=== PATIENT | female | born 1965 | race Caucasian/White ===

== ENCOUNTER 2017-06-16 15:14 | Emergency (ER) | payer OTHER ==
[2017-06-16 15:15] VITALS: O2SAT 97
[2017-06-16 15:48] VITALS: BP 118/81; PULSE 94; RESP 16; TEMP 97.4
[2017-06-16] MEDS ORDERED: ASPIRIN 325 MG TAB PO SCH (16:15)
[2017-06-16 16:18] LABS: BASOPHILS % (AUTO) 1 % (0-3); EOSINOPHILS % (AUTO) 2 % (0-9); HEMATOCRIT 44 % (35-47); MEAN CORPUSCULAR HGB CONC 33.8 gm/dl (32.0-36.0); MEAN CORPUSCULAR VOLUME 89 fL (81-99); MONOCYTES % (AUTO) 10.6 % (0-12); NEUTROPHILS % (AUTO) 61.9 % (37-80)
[2017-06-16 16:27] LABS: POTASSIUM 3.9 mMol/L (3.5-5.1)
[2017-06-16] MEDS ORDERED: ASPIRIN 325 MG TAB ONE (16:36)
== END 2017-06-16 16:41 | disposition home or self-care (01) ==
LOC: ED 15:14
DX: M79.89 Other specified soft tissue disorders (principal); R25.2 Cramp and spasm
CPT/HCPCS: 36415; 80048; 83735; 85025; 99282

== ENCOUNTER 2017-09-02 09:47 | Emergency (ER) | payer OTHER ==
[2017-09-02 09:58] VITALS: BP 123/82; PULSE 93; RESP 18; TEMP 96.9; O2SAT 98
[2017-09-02 10:34] LABS: BASOPHILS % (AUTO) 1 % (0-3); EOSINOPHILS % (AUTO) 1 % (0-9); HEMATOCRIT 43 % (35-47); MEAN CORPUSCULAR HGB CONC 34.9 gm/dl (32.0-36.0); MEAN CORPUSCULAR VOLUME 87 fL (81-99); MONOCYTES % (AUTO) 7.8 % (0-12); NEUTROPHILS % (AUTO) 73.5 % (37-80)
[2017-09-02 11:01] LABS: ALBUMIN 4.2 gm/dl (3.4-5.0); ALT 20 IU/L (14-63); GLOM FILT RATE 80 mL/min (>60); POTASSIUM 4.4 mMol/L (3.5-5.1); SODIUM 138 mMol/L (136-145); THYROID STIMULATING HORMONE 0.913 uIU/ml (0.358-3.740)
[2017-09-02 12:03] LABS: AMPHETAMINES NEGATIVE (NEGATIVE); METHADONE NEGATIVE (NEGATIVE); OPIATES(OP13) NEGATIVE (NEGATIVE); OXYCODONE(OXY) NEGATIVE (NEGATIVE); PROPOXYPHENE(PPX) NEGATIVE (NEGATIVE); TRICYCLIC ANTIDEPRESSANTS NEGATIVE (NEGATIVE)
[2017-09-02 12:47] LABS: APPEARANCE,URINE Clear; BILIRUBIN,URINE NEGATIVE (NEGATIVE); COLOR,URINE Yellow; GLUCOSE, URINE (UA) NEGATIVE (NEGATIVE); KETONES,URINE NEGATIVE (NEGATIVE); LEUKOCYTE ESTERASE ,URINE NEGATIVE (NEGATIVE); NITRATE,URINE NEGATIVE (NEGATIVE); OCCULT BLOOD,URINE 1+ (NEG-TRACE); UROBILINOGEN,URINE 0.2 (0.2-1.0 EU)
[2017-09-02 13:03] LABS: RBC,URINE NEG (0-3AV/HPF); WBC,URINE 0-1 (0-5AV/HPF)
== END 2017-09-02 13:37 | disposition home or self-care (01) ==
LOC: ED 09:47
DX: R45.851 Suicidal ideations (principal)
CPT/HCPCS: 36415; 80053; 80305; 80307; 81001; 84443; 85025; 99284; 99285

== ENCOUNTER 2017-11-06 04:07 | Emergency (ER) | payer OTHER ==
[2017-11-06 04:24] VITALS: RESP 16; TEMP 97.8
[2017-11-06] MEDS ORDERED: APAP/CODEINE 300/30 TAB PO ONE (05:06)
[2017-11-06] MEDS ORDERED: APAP/CODEINE 300/30 TAB ONE (05:13)
[2017-11-06 05:21] VITALS: BP 122/68; PULSE 78; O2SAT 100
== END 2017-11-06 05:18 | disposition home or self-care (01) ==
LOC: ED 04:07
DX: K08.89 Other specified disorders of teeth and supporting structures (principal)
CPT/HCPCS: 99282; 99283

== ENCOUNTER 2019-01-07 16:58 | Emergency (ER) | payer OTHER ==
[2019-01-07 17:31] VITALS: BP 127/67; PULSE 99; RESP 20; TEMP 96; O2SAT 97
== END 2019-01-07 18:19 | disposition home or self-care (01) | DRG 880 ==
LOC: ED 16:58
DX: F41.8 Other specified anxiety disorders (principal)
CPT/HCPCS: 99282